=== PATIENT | female | born 1955 | race Caucasian/White ===

== ENCOUNTER → 2017-07-23 | Outpatient (CLI) | payer OTHER | END | disposition home or self-care (01) | LOC: HKI 13:27 | DX: M25.562 Pain in left knee (principal); M13.862 Other specified arthritis, left knee; S72.002D Fracture of unspecified part of neck of left femur, subsequent encounter for closed fracture with routine healing; X58.XXXD Exposure to other specified factors, subsequent encounter | CPT/HCPCS: 73502; 73562-50 ==

== ENCOUNTER → 2017-09-24 | Outpatient (CLI) | payer BC, OTHER | END | disposition home or self-care (01) | LOC: HKI 14:56 | DX: M16.12 Unilateral primary osteoarthritis, left hip (principal); Z87.81 Personal history of (healed) traumatic fracture ==

== ENCOUNTER → 2018-06-16 | Outpatient (CLI) | payer OTHER, BC | END | disposition home or self-care (01) | LOC: HKI 10:08 | DX: M25.551 Pain in right hip (principal); M54.5 Low back pain; E06.3 Autoimmune thyroiditis | CPT/HCPCS: 73523 ==